=== PATIENT | female | born 1955 | race Caucasian/White ===

== ENCOUNTER 2021-12-17 11:42 | Outpatient (CLI) | payer MEDICARE, SELFPAY ==
[2021-12-17 18:32] LABS: Appearance Urine Turbid (Clear); Bilirubin Urine Negative (Negative); Blood Urine Negative (Negative); Color Urine Yellow (Yellow); Glucose Urine UA Negative (Negative); Ketones Urine Trace mg/dL (Negative); Leukocyte Esterase Ur 2+ LEU/UL (Negative); Nitrate Urine Negative (Negative); Protein Urine Trace mg/dL (Negative); Specific Grav Ur >= 1.030 (1.001-1.035); Urobilinogen Urine 0.2 mg/dL (<2.0); pH Urine 5.5 (5.0-9.0)
[2021-12-17 18:49] LABS: Amorphous Sediment Urine Few; Bacteria Urine 1+ /hpf; Mucus Urine Heavy /lpf; Squamous Epithelial Cell Urine Moderate /hpf (Few); WBC Urine 16-20 /hpf
[2021-12-17 18:50] LABS: Add Urine Microscopic? YES
== END 2021-12-17 11:43 | disposition home or self-care (01) ==
LOC: ANHGOSHLAB 11:45
PROVIDERS: PCP Family Medicine; Visit Provider Family Medicine
DX: Z82.69 Family history of other diseases of the musculoskeletal system and connective tissue (principal)
CPT/HCPCS: 81001; 87086

== ENCOUNTER 2022-06-23 07:22 | Outpatient (CLI) | payer OTHER, SELFPAY ==
--- NOTE | 2022-06-23 | ECG_ITS ---
Measurements Intervals Hunter Rate: 63 P: 60 IL: 143 QRS: 5 QRSD: 95 T: 1 QT: 402 QTc: 413 Interpretive Statements SINUS RHYTHM POSSIBLE LEFT ATRIAL ENLARGEMENT BORDERLINE ECG NO PREVIOUS ECG AVAILABLE FOR COMPARISON Electronically Signed On 06-23-2022 9:50:45 CDT by Baldemar French D.O.
--- NOTE | ~2022-06-23 | XR_ITS ---
XR chest 2V DATE: 06/23/2022 07:53 INDICATION: Preoperative evaluation; kidney donor TECHNIQUE: PA and lateral views COMPARISON: None FINDINGS: Normal heart size. No hilar or mediastinal enlargement. Aortic arch calcification. No pulmo nary infiltrate or consolidation, pleural effusion or pulmonary vascular congestion or pneumothorax. Surgical clips, right upper quadrant, consistent with cholecystectomy. Included skeletal structures are unremarkable. IMPRESSION: No active cardiopulmonary disease Aortic atherosclerosis Status post cholecystectomy Reviewed, dictated and finalized at location B.
[2022-06-23 08:34] LABS: Basophils Absolute Auto 0.1 K/mm3 (0.0-0.1); Eosinophils Absolute Auto 0.2 K/mm3 (0-0.3); Eosinophils Percent Auto 2.2 % (0-4.4); Hematocrit 42.8 % (37.0-47.0); Hemoglobin 13.8 g/dL (12.0-15.0); Immature Granulocyte Absolute 0.03 K/mm3 (0.00-0.031); Immature Granulocyte Percent A 0.4 % (0-0.5); Lymphocytes Absolute Auto 2.37 K/mm3 (0.9-3.2); Lymphocytes Percent Auto 33.1 % (18.3-44.2); Mean Corpuscular HGB Conc 32.2 g/dl (32-36); Mean Corpuscular Hemoglobin 27.4 pg (26-34); Mean Corpuscular Volume 84.9 fl (80-100); Mean Platelet Volume 9.7 fl (7.4-10.4); Monocytes Absolute Auto 0.4 K/mm3 (0.1-0.6); Monocytes Percent Auto 6.1 % (2.6-8.5); Neutrophils Absolute Auto 4.1 K/mm3 (1.3-6.7); Neutrophils Percent Auto 57.2 % (45.5-73.1); Platelet Count Result 312 k/mm3 (150-375); Red Blood Count 5.04 M/mm3 (4.2-5.4); Red Cell Distribution Width 13.6 % (11.5-14.5); White Blood Count 7.2 K/mm3 (4.5-10.0)
[2022-06-23 08:43] LABS: Appearance Urine Clear (Clear); Bacteria Urine None Seen /hpf; Bilirubin Urine Negative (Negative); Blood Urine Negative (Negative); Color Urine Yellow (Yellow); Glucose Urine UA Negative (Negative); Ketones Urine Negative (Negative); Leukocyte Esterase Ur Trace LEU/UL (NEGATIVE); Nitrate Urine Negative (Negative); Non Pathogenic Casts 0-2; Protein Urine Negative (Negative); Specific Grav Ur 1.008 (1.001-1.035); Squamous Epithelial Cell Urine None seen /hpf (Few); Urobilinogen Urine 0.2 mg/dL (<2.0); WBC Urine 0-5 /hpf (0-3)
[2022-06-23 08:44] LABS: INR 0.9; Prothrombin Time 12.2 Seconds (11.1-14.7)
[2022-06-23 08:45] LABS: Partial Thromboplastin Time 29.7 SECONDS (22.3-36.8)
[2022-06-23 08:46] LABS: Add Urine Microscopic? YES
[2022-06-23 08:50] LABS: Alanine Aminotransferase 36 U/L (6-35); Albumin Level 4.5 g/dL (3.5-5.1); Alkaline Phosphatase 60 U/L (38-126); Anion Gap 5 mmol/L (8-16); Aspartate Amino Transferase 25 U/L (14-36); Bilirubin,Total 0.9 mg/dL (0.2-1.3); Blood Urea Nitrogen 15 mg/dL (7-17); Carbon Dioxide 32 mmol/L (22-30); Chloride 101 mmol/L (98-107); Cholesterol 209 mg/dL (0-200); Estimated Glomerular Filt Rate > 60; Glucose 112 mg/dL (65-110); HDL Direct 44 mg/dL; Phosphorus 3.7 mg/dL (2.5-4.5); Potassium 4.4 mmol/L (3.4-5.0); Sodium 138 mmol/L (137-145); Triglycerides 211 mg/dL (<150); Uric Acid 5.5 mg/dL (2.5-7.5)
[2022-06-23 09:01] LABS: LDL Cholesterol Direct 116 mg/dL
[2022-06-23 09:23] LABS: Serum Qual hCG Negative
[2022-06-23 09:24] LABS: SPREG INTERNAL CONTROL Positive
[2022-06-23 09:30] LABS: HIV 1/2 Ab P24 Ag Result Negative (Negative)
[2022-06-23 09:40] LABS: Hemoglobin A1C 5.8 % (<5.7)
[2022-06-23 09:53] LABS: Creatinine Urine 46.2 mg/dL
[2022-06-23 10:01] LABS: Hepatitis B Surface Antigen Negative (Negative)
[2022-06-23 10:01] LABS: MALB Creatinine Ratio < 13.0 mg/g (0-30); Microalbumin Urine Random < 6.0 mg/L (0-16.7)
[2022-06-23 10:18] LABS: Hepatitis B Surface Anti Res Negative; Hepatitis C Virus Antibody Negative (Negative)
[2022-06-23 14:16] LABS: Rapid Plasma Reagin Non-Reactive (NonReactive)
[2022-06-26 19:10] LABS: GGT 21 U/L (3-65)
[2022-06-27 13:16] LABS: CMV IgG Antibody <0.60 U/mL (<0.60)
[2022-06-27 19:30] LABS: Hepatitis B Core Ab Total Nonreactive (Nonreactive)
[2022-06-28 09:42] LABS: EBV Nuclear Ab Antibody >600.00 U/mL (<18.00); EBV Nuclear Ab Interpretation Past; EBV Virus Capsid Ag IgG Ab >750.00 U/mL (<18.00); EBV Virus Capsid Ag IgM Ab <36.00 U/mL (<36.00)
== END 2022-06-23 07:23 | disposition home or self-care (01) ==
PROVIDERS: PCP Family Medicine; Visit Provider Internal Medicine Nephrology
DX: Z52.4 Kidney donor (principal); Z01.818 Encounter for other preprocedural examination; I70.0 Atherosclerosis of aorta; Z90.49 Acquired absence of other specified parts of digestive tract; R94.31 Abnormal electrocardiogram [ECG] [EKG]
CPT/HCPCS: 36415; 71046; 80053; 80061; 81001; 82043; 82977; 83036; 84100; 84550; 84703; 85025; 85610; 85730; 86592; 86644; 86664; 86665; 86703; 86704; 86706; 86803; 86900; 86901; 87086; 87340; 93005; G0432

== ENCOUNTER 2023-07-19 14:16 | Outpatient (CLI) | payer MEDICARE, SELFPAY ==
[2023-07-19 18:50] LABS: Basophils Absolute Auto 0.1 K/mm3 (0.0-0.1); Basophils Percent Auto 0.9 % (0.2-1.2); Eosinophils Absolute Auto 0.1 K/mm3 (0-0.3); Hematocrit 47.6 % (37.0-47.0); Hemoglobin 15.2 g/dL (12.0-15.0); Immature Granulocyte Absolute 0.02 K/mm3 (0.00-0.031); Immature Granulocyte Percent A 0.2 % (0-0.5); Lymphocytes Absolute Auto 3.27 K/mm3 (0.9-3.2); Lymphocytes Percent Auto 30.7 % (18.3-44.2); Mean Corpuscular HGB Conc 31.9 g/dl (32-36); Mean Corpuscular Hemoglobin 28.2 pg (26-34); Mean Corpuscular Volume 88.3 fl (80-100); Monocytes Absolute Auto 0.6 K/mm3 (0.1-0.6); Neutrophils Absolute Auto 6.5 K/mm3 (1.3-6.7); Neutrophils Percent Auto 61.2 % (45.5-73.1); Platelet Count Result 362 k/mm3 (150-375); Red Blood Count 5.39 M/mm3 (4.2-5.4); Red Cell Distribution Width 14.1 % (11.5-14.5); White Blood Count 10.6 K/mm3 (4.5-10.0)
== END 2023-07-19 14:17 | disposition home or self-care (01) ==
LOC: ANHGOSHLAB 14:18
PROVIDERS: PCP Family Medicine; Visit Provider Family Medicine
DX: N95.0 Postmenopausal bleeding (principal)
CPT/HCPCS: 36415; 85025

== ENCOUNTER 2023-07-20 10:39 | Outpatient (CLI) | payer MEDICARE, SELFPAY ==
--- NOTE | ~2023-07-20 | US_ITS ---
EXAMINATION: US pelvic complete w TV DATE: 07/20/2023 11:03 INDICATION: Postmenopausal bleeding. TECHNIQUE: Multiple transabdominal and transvaginal sonographic images of the pelvis were obtained. COMPARISON: None. FINDINGS: TRANSABDOMINAL ULTRASOUND: The uterus measures 8.7 x 5.0 x 4.0 cm. There is no free fluid in the pelvis. TRANSVAGINAL ULTRASOUND: The endometrial complex measures 6 mm in thickness. The are not visualized. IMPRESSION: 1. Thickened endometrial complex. The differential diagnosis includes endometrial hyperplasia, polyp, and carcinoma. Biopsy is recommended. Reviewed, dictated and finalized at location E. IMPRESSION: 1. Thickened endometrial complex. The differential diagnosis includes endometri al hyperplasia, polyp, and carcinoma. Biopsy is recommended.
== END 2023-07-20 10:40 ==
LOC: GOSHIMG 10:41
PROVIDERS: PCP Family Medicine; Visit Provider Family Medicine
DX: N95.0 Postmenopausal bleeding (principal)
CPT/HCPCS: 76830; 76856

== ENCOUNTER 2023-11-09 00:46 | Day surgery (SDC) | payer MEDICARE, SELFPAY ==
[2023-11-03 15:38] VITALS: BMI 33.5
--- NOTE | 2023-11-03 16:04 | PC.NURSE ---
Report to the Outpatient Waiting Room, entrance under the green pavilion located off [facility], at time _07:00am on date ___11/09/23____. Planned Procedure Time: __09:00am . Time changes happen often and if your time is changed the preop area will call you the afternoon before. - You and your visitor will be asked to self-screen and do not enter if you have any COVID symptoms. - A mask is optional within the hospital at this time. Patients may have clear liquids (water, carbonated beverages, clear teas, apple juice) until 3 hours prior to surgery with a maximum of 20 ounces. - No food from midnight until time of surgery Take the following medications with a SIP of water the morning of surgery: __None DO NOT STOP ANY OF YOUR OTHER PRESCRIPTION MEDICATIONS PRIOR TO SURGERY ?EXCEPT THE FOLLOWING Medications to discontinue per physician Stop all Vitamins , probiotics and supplements 3 days prior to surgery per Anesthesia. Date to take last dose 11/05/23 Please no make-up, nail french, hairspray, perfume, deodorant, or body powder the day of surgery. No jewelry (including any body piercings) or valuables the day of surgery, leave them at home. Please take a shower or bath the night before, or the morning of, surgery with an antibacterial soap. Wear comfortable, loose fitting clothing. Children are encouraged to wear pajamas. - Jewelry must be removed prior to entering the operating room. Rings and piercings that are not removed may be cut off. - The hospital will not accept responsibility for valuables. - Please leave all valuables, including medications, at home the day of surgery. If you are going home after surgery, a licensed milk delivery driver must drive you home. - NO public transportation without another adult if you receive anesthesia. - We recommend that an adult stay with you for 24 hours following discharge. - We also recommend that you do not drive, make important decision, drink alcoholic beverages, or take any drugs that were not prescribed by your health care provider for at least 24 hours after your discharge time. Follow any additional instructions given to you from your surgeon. If you or anyone in your household have experienced Covid symptoms in the past week, please notify your surgeon or the nurse liaison at the phone number below for possible testing. Telephone instructions given to __patient and asked if any additional questions and then verbalized understanding. Patient advised to call surgeon office or pre surgery nurse liaison [phone] if any additional questions.
[2023-11-09 08:00] VITALS: BP 123/72; PULSE 98; RESP 14; TEMP 36.7; O2SAT 100
[2023-11-09] MEDS: ACETAMINOPHEN 500 MG TABLET 1000 MG PO (08:00)
[2023-11-09] MEDS: LACTATED RINGERS 1,000 ML 30 ML IV CONT ×3 (08:00→10:19)
--- NOTE | 2023-11-09 08:16 | WPDHPUPDATE1 ---
History and Physical Update Update Date/Time: 11/09/23 08:16 History and Physical has been reviewed, including an updated exam of the patient. There are NO changes in the patient's condition. Risks, benefits, and alternatives have been discussed and questions answered. Patient agrees to proceed with procedure.
--- NOTE | 2023-11-09 08:48 | WPDANESEPPF ---
Anes - Initial Pre Proc Eval Procedure: Operation Date: 11/09/23 09:00 Proposed Procedures p Hysteroscopy Dilation and Curettage Removal of any Endometrial Lesion if Necessary - Devaughn Barton MD Date/Time: 11/09/23 08:48 Surgeon: Devaughn Barton MD Pre Op Diagnosis: Post Menopausal bleeding Pre Op Diagnosis: post menopausal bleeding Patient Data Age: 67 Gender: F Height: 1.7 m Weight: 97.6 kg Last Vital Signs Temp 36.7 C 11/09/23 08:00 Pulse 98 11/09/23 08:00 Resp 14 11/09/23 08:00 BP 123/72 11/09/23 08:00 Pulse Ox 100 11/09/23 08:00 O2 Del Method Room Air 11/09/23 08:00 Allergies Allergy/AdvReac Type Severity Reaction Status Date / Time brompheniramine Allergy Intermediate DIFFICULTY Verified 11/09/23 08:46 WALKING latex Allergy Intermediate Skin Verified 11/09/23 08:45 Reaction phenylpropanolamine Allergy Intermediate DIFFICULTY Verified 11/09/23 08:46 WALKING clavulanic acid AdvReac Intermediate Diarrhea Verified 11/09/23 08:45 [From Augmentin] erythromycin base AdvReac Intermediate stomach Verified 11/09/23 08:45 pain codeine AdvReac Unknown unable to Verified 11/09/23 08:45 focus, nausea gluten AdvReac Intermediate Diarrhea Uncoded 11/09/23 08:45 Home Medications Medication Instructions Recorded Confirmed Type ascorbic acid (vitamin C) 1,000 mg 1 gm PO DAILY 10/05/19 11/03/23 History tablet cholecalciferol (vitamin D3) 25 25 mcg PO DAILY 10/05/19 11/03/23 History mcg (1,000 unit) capsule zinc acetate 25 mg (zinc) capsule 25 mg PO DAILY 10/05/19 11/03/23 History (Galzin) cetirizine 10 mg tablet (Zyrtec) 10 mg PO DAILY 06/19/21 11/03/23 History famotidine 20 mg tablet 20 mg PO DAILY 06/19/21 11/03/23 History folic acid 800 mcg tablet 0.8 mg PO DAILY 06/19/21 11/03/23 History pantoprazole 20 mg tablet,delayed 20 mg PO QAM 06/19/21 11/03/23 History release omega-3 fatty acids 1,250 mg 1,250 mg PO BID 10/06/21 11/03/23 History capsule clotrimazole-betamethasone 1 1 applic topical BID 2 weeks #45 07/20/22 11/03/23 Rx %-0.05 % topical cream grams quercetin 500 mg capsule 500 mg PO DAILY 07/20/22 11/03/23 History tobramycin 0.3 %-dexamethasone 0.1 1 drp PRN 11/03/23 11/03/23 History % eye drops,suspension Patient hx anesthesia problems: none Family hx anesthesia problems: none Results Review: All pre-operative results and documents have been reviewed as part of the pre-operative evaluation. [facility] Past Medical History Medical History COVID-19 (~09/2021) Skin tag Surgical History Surgical History History of carpal tunnel surgery History of cholecystectomy Family History Family History Grandparent Diabetes mellitus Depression Family history of cardiovascular disease Acute myocardial infarction, Onset Age: 60 Family history of malignant neoplasm of stomach Father Depression Family history of Parkinson's disease Sibling Anti-glomerular basement membrane antibody disease Social History Social History Social History: Caffeine-coffee daily Smoking status: Never smoker Alcohol intake: never Alcohol use details: once every 4 months Substance use: never Substance use type: does not use Do You Feel Safe in your Home?: Yes Lack of Transportation: No Lack of Food: Never True Current Housing: I Have Housing Concerned About Future Housing: No Difficulty Paying Gas/Electric Bills: No Difficulty Paying for Meds: No Currently Unemployed: No Education: Master's Degree or Higher Difficulty w/ Childcare or Family Care: No Living arrangements: alone Spiritual care concerns: No Anes - Eval Final PreProcedure Day of Procedure 11/09/23 0
[2023-11-09] MEDS: ceFAZolin 2 GM/D5W 50 ML 2 GM/50 ML BAG IVPB (08:55)
[2023-11-09] MEDS: LIDOCAINE HCL 1% LOCAL INJ 20 ML VIAL 10 ML INFILTRATE (09:07)
[2023-11-09 09:27] VITALS: BP 92/54; PULSE 56; RESP 16; O2SAT 93
--- NOTE | 2023-11-09 09:42 | W.PM.PROC2 ---
Procedure Note - Detailed Date of Procedure 11/09/23 Pre-op Diagnosis post menopausal bleeding, thickened endometrial lining Post-op Diagnosis Other (Endometrial polypoid lesion) Procedure Performed hysteroscopy with dilation and curettage and excision of endometrial lesion Surgeon Devaughn Barton MD Anesthesia MAC and Local Indications postmenopausal bleeding thickened endometrium on ultrasound Findings uterus sound to 8 cm, there was a 1.5 cm polypoid lesion at the upper uterine cavity anterior this was removed completely with the a Aveta instrument. The rest of the cavity appeared atrophic. Scant tissue with curettage. Description of Procedure After informed consent was obtained patient was taken to the operating room and adequate IV sedation was administered. Attention was turned to the vagina. Speculum was inserted. Single-tooth tenaculum placed on the anterior lip of the cervix. The uterus was sounded to 8 cm. Lidocaine was injected at the cervical vaginal interface at to 5 8 in 10 position. The cervix was dilated to an 4 Quezada dilator. The hysteroscope was inserted into the cavity. The Polypoid lesion was visualized and the instrument was inserted and the lesion was removed completely. The hysteroscope was removed. A curettage was performed with scant tissue obtained. The single-tooth tenaculum was removed hemostasis was noted at the tenaculum site. Sponge count correct. The patient taken to recovery in stable condition. Estimated Blood Loss 5 Drains No Packing No Pathology Yes ( Shavings and curettage) Complications No immediate complications Condition Stable Disposition Same day [facility] Billing Surgery - Charge Forward: Surgery Billing
[2023-11-09 09:50] VITALS: BP 102/66; PULSE 51; RESP 20
[2023-11-09] MEDS: ONDANSETRON INJ 4 MG/2 ML VIAL IV PUSH (10:17)
[2023-11-09 10:20] VITALS: BP 136/77; PULSE 58; RESP 20
[2023-11-09] MEDS: diphenhydrAMINE HCl INJ 50 MG/ML VIAL 12.5 MG IV PUSH (10:45)
[2023-11-09 10:50] VITALS: BP 130/74; PULSE 60; RESP 20
[2023-11-09 11:09] VITALS: BP 150/90; PULSE 55; RESP 20
== END 2023-11-09 11:14 | disposition home or self-care (01) ==
PROVIDERS: PCP Family Medicine; Visit Provider Obstetrics & Gynecology
PROC: 0U5B8ZZ Destruction of Endometrium, Via Natural or Artificial Opening Endoscopic (ICD-10-PCS; CPT 58563; principal; 2023-11-09 09:00)
DX: N95.0 Postmenopausal bleeding (principal); N84.0 Polyp of corpus uteri; E66.9 Obesity, unspecified; Z68.33 Body mass index [BMI] 33.0-33.9, adult
CPT/HCPCS: 58558; 88305; A9270; J0690; J1100; J1200; J1885; J2250; J2405; J2704; J3010; J7120

== ENCOUNTER 2024-11-16 08:31 | Outpatient (CLI) | payer MEDICARE, SELFPAY ==
--- NOTE | ~2024-11-16 | DEXA_ITS ---
Bone Density Report Name: DHAVAL WEBER Age: 68 Sex: Female Ethnicity: White Date of : 1955 Indication: postmenopausal; screening for osteoporosis; height loss; inflammatory bowel disease; prior fracture; Referring Provider: YVAN LANCASTER Study: Bone densitometry was performed. Exam Date: November 16, 2024 Accession number: [id number] Bone Density: Region BMD T-score Z-score Classification AP Spine(L1-L4) 1.181 1.2 3.3 Normal Femoral Neck (Left) 0.777 -0.6 1.1 Normal Total Hip (Left) 0.960 0.1 1.6 Normal Femoral Neck (Right) 0.832 -0.1 1.6 Normal Total Hip (Right) 0.937 0.0 1.4 Normal Total Hip Mean 0.948 0.1 1.5 Normal World Health Organization criteria for BMD impression classify patients as: Normal (T-score at or above -1.0), Osteopenia (T-score between -1.0 and -2.5), or Osteoporosis (T-score at or below -2.5). 10-year Fracture Risk: FRAX not reported because: All T-scores for Spine Total, Hip Total, Femoral Neck at or above -1.0 Previous Exams: -- Region Exam Age BMD T-score BMD Change BMD Change Date g/cm2 vs Baseline vs Previous -- AP Spine (L1-L4) 11/16/2024 68 1.181 1.2 -2.2%# -2.2%# 03/09/2017 61 1.208 1.5 Total Hip(Left) 11/16/2024 68 0.960 0.1 -2.7%# -2.7%# 03/09/2017 61 0.986 0.4 Total Hip(Right) 11/16/2024 68 0.937 0.0 -0.3%# -0.3%# 03/09/2017 61 0.939 0.0 -- *Denotes significance at 95% confidence level, LSC for AP Spine = 0.022 g/cm2, LSC for Total Hip = 0.027 g/cm2 # Denotes dissimilar scan types or analysis methods Clinical Information Provided by Patient: Has had a low trauma fracture Has used the following medications: Vitamin D Has the following medical conditions: Inflammatory bowel diseases Patient maximum height was 68 Menopause Age: 56 Drinks caffeinated beverages Onset of menses at age 14 Number of children 4 Missed period for more than 6 months in a row Impression: The patient has normal bone mass. The patient has risk factors, including: previous fracture. Unable to evaluate interval change due to the use of different scan modes. Discussion: BONE DENSITY IS ABOVE THE MINIMUM DESIRABLE LEVEL AT ALL SKELETAL SITES TESTED. This patient?s bone mineral density is above the minimum desirable level (T-score -1.0 or better) at all sites measured. The patient should follow a healthful lifestyle (good nutrition with adequate calcium and vitamin D, and appropriate weight-bearing exercise). Follow-Up: Consider repeating this study in 5 years or sooner if there is some new clinical indication. Reported by: MARGARITA on 11/16/2024 9:25:00 AM. Reviewed, dictated and finalized at location A.
== END 2024-11-16 08:32 | disposition home or self-care (01) ==
LOC: MICIMG 08:32
PROVIDERS: PCP Family Medicine; Visit Provider Obstetrics & Gynecology
DX: Z78.0 Asymptomatic menopausal state (principal)
CPT/HCPCS: 77080